=== PATIENT | male | born 1980 | race Caucasian/White ===

== ENCOUNTER 2017-06-04 23:52 | Emergency (ER) | payer MEDICAID ==
[~2017-06-04] VITALS: Ht 175.3 cm; Wt 97.8 kg
[2017-06-05 02:32] VITALS: BP 112/52
== END 2017-06-05 02:34 | disposition home or self-care (01) ==
LOC: ED 06-05 02:28
DX: R42 Dizziness and giddiness (principal)
CPT/HCPCS: 36415; 80047; 93005; 99285

== ENCOUNTER 2017-07-04 09:35 | Emergency (ER) | payer MEDICAID ==
[~2017-07-04] VITALS: Ht 177.8 cm; Wt 91.0 kg
[2017-07-04 12:14] VITALS: BP 113/58
== END 2017-07-04 12:18 | disposition home or self-care (01) ==
LOC: ED 11:51
DX: F32.1 Major depressive disorder, single episode, moderate (principal); F15.10 Other stimulant abuse, uncomplicated
CPT/HCPCS: 99284

== ENCOUNTER 2017-07-05 06:14 | Emergency (ER) | payer MEDICAID ==
[~2017-07-05] VITALS: Ht 177.8 cm; Wt 98.2 kg
[2017-07-05 06:19] VITALS: BP 122/80
== END 2017-07-05 07:02 | disposition home or self-care (01) ==
LOC: ED 06:55
DX: R06.00 Dyspnea, unspecified (principal)
CPT/HCPCS: 93005; 99283

== ENCOUNTER 2017-10-19 16:05 | Emergency (ER) | payer MEDICAID ==
[~2017-10-19] VITALS: Ht 175.3 cm; Wt 77.7 kg
[2017-10-19 16:42] VITALS: BP 129/78
[2017-10-19] MEDS ORDERED: LORazepam 0.5MG TABLET ONE (18:26)
[2017-10-19] MEDS ORDERED: LORazepam 0.5MG TABLET PO ONE (18:30)
[2017-10-19 19:11] LABS: ALANINE AMINOTRANSFERASE 32 U/L (12-78); ANION GAP 7 mmol/L (5-15); BASOPHILS % (AUTO) 0 % (0-1); CHLORIDE 104 mmol/L (98-107); EOSINOPHILS % (AUTO) 0 % (1-7); LYMPHOCYTES % (AUTO) 7 % (22-44); MD NO; MEAN CORPUSCULAR HEMOGLOBIN 31.1 pg (27.5-34.5); MEAN CORPUSCULAR HGB CONC 33.9 g/dL (33.2-36.2); MEAN CORPUSCULAR VOLUME 91.9 fL (81-97); MEAN PLATELET VOLUME 7.3 fL (7.4-10.4); MONOCYTES # (AUTO) 1.32 x10^3/uL (0.2-0.8); MONOCYTES % (AUTO) 8 % (2-9); NEUTROPHILS # (AUTO) 14.33 x10^3/uL (1.8-6.8); NEUTROPHILS % (AUTO) 86 % (42-75); PLATELET COUNT 309 x10^3/uL (130-400); RED BLOOD COUNT 4.91 x10^6/uL (4.38-5.82); RED CELL DISTRIBUTION WIDTH 12.2 % (9.4-14.8)
[2017-10-19 19:13] LABS: ALKALINE PHOSPHATASE 142 U/L (45-117); BILIRUBIN,TOTAL 2.9 mg/dL (0.2-1.0); CREATININE 1.14 mg/dL (0.7-1.3); TOTAL PROTEIN 8.3 g/dL (6.4-8.2)
[2017-10-19 19:20] LABS: ACETAMINOPHEN < 2 mcg/mL (10-30); SALICYLATE LEVEL < 1.7 mg/dL (2.8-20.0)
[2017-10-19 20:35] LABS: AMPHETAMINE SCREEN, URINE Negative (Negative); BARBITURATE SCREEN, URINE Negative (Negative); BENZODIAZEPINE SCREEN, URINE Negative (Negative); CANNABINOID SCREEN, URINE Negative (Negative); COCAINE SCREEN, URINE Negative (Negative); METHADONE SCREEN, URINE Negative (Negative); OPIATE SCREEN, URINE Negative (Negative)
== END 2017-10-19 20:39 | disposition home or self-care (01) ==
LOC: ED 20:08
DX: F33.2 Major depressive disorder, recurrent severe without psychotic features (principal)
CPT/HCPCS: 36415; 80053; 80307; 80329; 85025; 99284; G0479; G0480

== ENCOUNTER 2017-10-23 21:06 | Emergency (ER) | payer MEDICAID ==
[~2017-10-23] VITALS: Ht 177.8 cm; Wt 76.9 kg
[2017-10-23 21:24] VITALS: BP 111/77
[2017-10-23 22:21] LABS: BASOPHILS # (AUTO) 0.02 x10^3/uL (0-0.1); BASOPHILS % (AUTO) 0 % (0-1); EOSINOPHILS # (AUTO) 0.19 x10^3/uL (0-0.4); EOSINOPHILS % (AUTO) 2 % (1-7); LYMPHOCYTES # (AUTO) 1.92 x10^3/uL (1-3.4); LYMPHOCYTES % (AUTO) 21 % (22-44); MD NO; MEAN CORPUSCULAR HEMOGLOBIN 30.8 pg (27.5-34.5); MEAN CORPUSCULAR HGB CONC 32.9 g/dL (33.2-36.2); MEAN CORPUSCULAR VOLUME 93.6 fL (81-97); MEAN PLATELET VOLUME 7.1 fL (7.4-10.4); MONOCYTES # (AUTO) 0.89 x10^3/uL (0.2-0.8); MONOCYTES % (AUTO) 10 % (2-9); NEUTROPHILS # (AUTO) 6.31 x10^3/uL (1.8-6.8); NEUTROPHILS % (AUTO) 68 % (42-75); PLATELET COUNT 364 x10^3/uL (130-400); RED BLOOD COUNT 4.49 x10^6/uL (4.38-5.82); RED CELL DISTRIBUTION WIDTH 12.3 % (9.4-14.8)
[2017-10-23 22:30] LABS: ALBUMIN 3.3 g/dL (3.4-5.0); ANION GAP 5 mmol/L (5-15); CALCIUM 9.1 mg/dL (8.5-10.1); CHLORIDE 106 mmol/L (98-107); CREATININE 0.87 mg/dL (0.7-1.3)
== END 2017-10-23 23:35 | disposition home or self-care (01) ==
LOC: ED 22:09
DX: R53.1 Weakness (principal); F32.9 Major depressive disorder, single episode, unspecified; Z59.0 Homelessness
CPT/HCPCS: 36415; 80048; 80307; 82040; 85025; 93005; G0479

== ENCOUNTER 2017-10-29 06:09 | Emergency (ER) | payer MEDICAID ==
[~2017-10-29] VITALS: Ht 177.8 cm; Wt 74.0 kg
[2017-10-29 06:10] VITALS: BP 105/71
== END 2017-10-29 09:13 | disposition home or self-care (01) ==
LOC: ED 07:42
DX: J20.8 Acute bronchitis due to other specified organisms (principal); M25.512 Pain in left shoulder
CPT/HCPCS: 71046; 99284

== ENCOUNTER 2017-10-30 17:26 | Emergency (ER) | payer MEDICAID ==
[~2017-10-30] VITALS: Ht 172.7 cm; Wt 75.0 kg
[2017-10-30 17:31] VITALS: BP 128/70
== END 2017-10-30 19:23 | disposition home or self-care (01) ==
LOC: ED 17:43
DX: M79.605 Pain in left leg (principal); Z59.0 Homelessness; F17.200 Nicotine dependence, unspecified, uncomplicated
CPT/HCPCS: 99284

== ENCOUNTER 2018-07-13 08:29 | Emergency (ER) | payer MEDICAID ==
[~2018-07-13] VITALS: Ht 177.8 cm; Wt 74.5 kg
[2018-07-13 08:38] VITALS: BP 113/63
== END 2018-07-13 10:14 | disposition home or self-care (01) ==
LOC: ED 10:08
DX: L03.115 Cellulitis of right lower limb (principal); F32.9 Major depressive disorder, single episode, unspecified
CPT/HCPCS: 99284

== ENCOUNTER 2018-12-02 11:20 | Emergency (ER) | payer MEDICAID ==
[~2018-12-02] VITALS: Ht 177.8 cm; Wt 75.0 kg
[2018-12-02 11:45] VITALS: BP 108/46
[2018-12-02 11:50] LABS: BASOPHILS # (AUTO) 0.02 x10^3/uL (0-0.1); BASOPHILS % (AUTO) 0 % (0-1); EOSINOPHILS # (AUTO) 0.24 x10^3/uL (0-0.4); EOSINOPHILS % (AUTO) 4 % (1-7); LYMPHOCYTES # (AUTO) 1.27 x10^3/uL (1-3.4); LYMPHOCYTES % (AUTO) 21 % (22-44); MD NO; MEAN CORPUSCULAR HEMOGLOBIN 31.2 pg (27.5-34.5); MEAN CORPUSCULAR HGB CONC 33.9 g/dL (33.2-36.2); MEAN PLATELET VOLUME 6.4 fL (7.4-10.4); MONOCYTES # (AUTO) 0.64 x10^3/uL (0.2-0.8); MONOCYTES % (AUTO) 11 % (2-9); NEUTROPHILS # (AUTO) 3.95 x10^3/uL (1.8-6.8); NEUTROPHILS % (AUTO) 65 % (42-75); PLATELET COUNT 312 x10^3/uL (130-400); RED BLOOD COUNT 4.18 x10^6/uL (4.38-5.82); RED CELL DISTRIBUTION WIDTH 13.2 % (9.4-14.8)
--- NOTE | 2018-12-02 11:53 | NUR ---
PT BIB [facility] WITH [employer]. [employer] PUT PT ON LEGAL HOLD FOR SI. PT WAS AT [facility] AND SEVERAL PEOPLE HEARD THE PT SAY THAT HE WANTED TO KILL HIMSELF BY USING A KNIFE OR BY OD. PT DENIES SI. PT IS DRESSED IN A GOWN. BELONGINGS PUT INTO TWO BAGS AND PUT INTO THE LOCKER. SITTER OUTSIDE THE ROOM.
[2018-12-02 12:02] LABS: ALBUMIN 3.5 g/dL (3.4-5.0); ANION GAP 3 mmol/L (5-15); CHLORIDE 107 mmol/L (98-107)
[2018-12-02 12:13] LABS: MICROSCOPIC NOT IND
--- NOTE | 2018-12-02 12:13 | NUR ---
PT GIVEN LUNCH TRAY.
[2018-12-02 12:14] LABS: CULTURE INDICATED? NO
[2018-12-02 12:28] LABS: ALANINE AMINOTRANSFERASE 45 U/L (12-78); ALKALINE PHOSPHATASE 129 U/L (45-117); BILIRUBIN,TOTAL 0.8 mg/dL (0.2-1.0); CALCIUM 8.2 mg/dL (8.5-10.1); CREATININE 0.85 mg/dL (0.7-1.3); TOTAL PROTEIN 7.8 g/dL (6.4-8.2)
[2018-12-02 12:30] LABS: ACETAMINOPHEN < 2 mcg/mL (10-30); SALICYLATE LEVEL < 1.7 mg/dL (2.8-20.0)
--- NOTE | 2018-12-02 12:52 | NUR ---
PT GIVEN A 7UP TO DRINK. PT IS APPRECIATIVE. SITTER OUTSIDE THE ROOM.
--- NOTE | 2018-12-02 13:07 | NUR ---
PT GIVEN 2ND LUNCH TRAY. PT IS APPRECIATIVE.
[2018-12-02 14:05] LABS: AMPHETAMINE SCREEN, URINE Positive (Negative); BARBITURATE SCREEN, URINE Negative (Negative); BENZODIAZEPINE SCREEN, URINE Negative (Negative); CANNABINOID SCREEN, URINE Negative (Negative); COCAINE SCREEN, URINE Negative (Negative); OPIATE SCREEN, URINE Negative (Negative)
--- NOTE | 2018-12-02 14:05 | NUR ---
PT IS RESTING IN BED, RESPIRATIONS EQUAL AND NON LABORED. NAD. SITTER OUTSIDE THE ROOM.
[2018-12-02 14:08] LABS: METHADONE SCREEN, URINE Negative (Negative)
--- NOTE | 2018-12-02 14:57 | NUR ---
PT IS RESTING IN BED WITH EYES CLOSED, RESPIRATIONS EQUAL AND NON LABORED. NAD. SITTER OUTSIDE THE ROOM.
--- NOTE | 2018-12-02 15:08 | NUR ---
TP RN: SOC CONSULT REQUESTED.
--- NOTE | 2018-12-02 15:30 | NUR ---
PT AMBULATED TO THE BATHROOM WITH STEADY GAIT. SITTER OUTSIDE THE DOOR.
--- NOTE | 2018-12-02 15:53 | NUR ---
PT IS WALKING AROUND ROOM. NAD. SITTER OUTSIDE ROOM.
--- NOTE | 2018-12-02 16:30 | NUR ---
PT GIVEN DINNER TRAY.
--- NOTE | 2018-12-02 16:32 | NUR ---
SPOKE WITH SOC DR. FIGUEROA. GAVE HER REPORT ON THE PT.
--- NOTE | 2018-12-02 16:37 | NUR ---
PT IS TALKING TO TELEPSYCH DOCTOR.
[2018-12-02] MEDS ORDERED: LORazepam 1MG TABLET PO ONE (17:00)
[2018-12-02] MEDS ORDERED: LORazepam 1MG TABLET ONE (17:02)
--- NOTE | 2018-12-02 17:37 | NUR ---
PT MEDICATED PER ORDER.
--- NOTE | 2018-12-02 18:20 | NUR ---
DPatient given discharge instructions and they have confirmed that they understand the instructions. Patient ambulatory with steady gait.
== END 2018-12-02 18:22 | disposition home or self-care (01) ==
LOC: ED 13:09
DX: F15.129 Other stimulant abuse with intoxication, unspecified (principal); F17.210 Nicotine dependence, cigarettes, uncomplicated
CPT/HCPCS: 36415; 80053; 80307; 80329; 81003; 85025; 99283; G0480

== ENCOUNTER 2019-02-25 22:00 | Emergency (ER) | payer MEDICAID ==
[~2019-02-25] VITALS: Ht 177.8 cm; Wt 92.6 kg
[2019-02-25 22:05] VITALS: BP 119/74
== END 2019-02-25 22:53 | disposition home or self-care (01) ==
LOC: ED 22:49
DX: S60.221A Contusion of right hand, initial encounter (principal); X58.XXXA Exposure to other specified factors, initial encounter; Y93.89 Activity, other specified; Y92.009 Unspecified place in unspecified non-institutional (private) residence as the place of occurrence of the external cause; Y99.8 Other external cause status
CPT/HCPCS: 99283

== ENCOUNTER 2019-04-21 07:11 | Emergency (ER) | payer MEDICAID ==
[~2019-04-21] VITALS: Ht 177.8 cm; Wt 94.8 kg
[2019-04-21 07:18] VITALS: BP 117/77
== END 2019-04-21 08:28 | disposition home or self-care (01) ==
LOC: ED 08:00
DX: S39.012A Strain of muscle, fascia and tendon of lower back, initial encounter (principal); G89.29 Other chronic pain; X58.XXXA Exposure to other specified factors, initial encounter; Y93.89 Activity, other specified; Y92.89 Other specified places as the place of occurrence of the external cause; Y99.8 Other external cause status
CPT/HCPCS: 99283

== ENCOUNTER 2019-10-16 07:40 | Emergency (ER) | payer MEDICAID ==
[~2019-10-16] VITALS: Ht 177.8 cm; Wt 100.0 kg
[~2019-10-16 07:40] MED LIST: OLAN10TA9 PO
[2019-10-16 07:53] VITALS: BP 118/70
--- NOTE | 2019-10-16 07:57 | NUR ---
piter. report received from ems. pt woke up with panic atack and anxiety at 5am. denies si/hi. pt's aox4. resps even and unlabored.
[2019-10-16] MEDS ORDERED: ASPIRIN 81 MG TABLET CHEW ONE (08:40)
--- NOTE | 2019-10-16 08:50 | NUR ---
xray in the room at this time.
--- NOTE | 2019-10-16 08:56 | NUR ---
pt medicated per emar. pt tolerated well. pt's aox4. resps even and unlabored.
[2019-10-16] MEDS ORDERED: ASPIRIN 81 MG TABLET CHEW PO ONE (09:00)
[2019-10-16 09:05] LABS: BASOPHILS # (AUTO) 0.07 x10^3/uL (0-0.1); BASOPHILS % (AUTO) 1 % (0-1); EOSINOPHILS # (AUTO) 0.19 x10^3/uL (0-0.4); EOSINOPHILS % (AUTO) 2 % (1-7); LYMPHOCYTES # (AUTO) 1.52 x10^3/uL (1-3.4); LYMPHOCYTES % (AUTO) 19 % (22-44); MD NO; MEAN CORPUSCULAR HEMOGLOBIN 31.7 pg (27.5-34.5); MEAN CORPUSCULAR HGB CONC 33.8 g/dL (33.2-36.2); MEAN CORPUSCULAR VOLUME 93.7 fL (81-97); MEAN PLATELET VOLUME 6.8 fL (7.4-10.4); MONOCYTES # (AUTO) 0.78 x10^3/uL (0.2-0.8); MONOCYTES % (AUTO) 10 % (2-9); NEUTROPHILS % (AUTO) 69 % (42-75); PLATELET COUNT 317 x10^3/uL (130-400); RED BLOOD COUNT 4.64 x10^6/uL (4.38-5.82); RED CELL DISTRIBUTION WIDTH 11.7 % (9.4-14.8)
[2019-10-16 09:15] LABS: ALBUMIN 3.7 g/dL (3.4-5.0); ANION GAP 6 mmol/L (5-15); CALCIUM 8.7 mg/dL (8.5-10.1); CHLORIDE 109 mmol/L (98-107); CREATININE 1.11 mg/dL (0.7-1.3)
[2019-10-16 09:19] LABS: TROPONIN I < 0.015 ng/mL (0.000-0.045)
--- NOTE | 2019-10-16 09:19 | NUR ---
pt is standing in the room. pt talking and laughing by himself.
--- NOTE | 2019-10-16 10:09 | NUR ---
Patient given discharge instructions and they have confirmed that they understand the instructions. Patient ambulatory with steady gait.
== END 2019-10-16 10:10 | disposition home or self-care (01) ==
LOC: ED 10:00
DX: F41.1 Generalized anxiety disorder (principal); R07.89 Other chest pain; F20.9 Schizophrenia, unspecified; F32.9 Major depressive disorder, single episode, unspecified
CPT/HCPCS: 36415; 71045; 80048; 82040; 84484; 85025; 93005; 99284

== ENCOUNTER 2019-12-06 15:45 | Emergency (ER) | payer MEDICAID ==
[~2019-12-06] VITALS: Ht 177.8 cm; Wt 80.0 kg
[2019-12-06 16:03] VITALS: BP 125/62
[2019-12-06 16:48] LABS: BASOPHILS # (AUTO) 0.04 x10^3/uL (0-0.1); BASOPHILS % (AUTO) 1 % (0-1); EOSINOPHILS # (AUTO) 0.16 x10^3/uL (0-0.4); EOSINOPHILS % (AUTO) 2 % (1-7); LYMPHOCYTES # (AUTO) 1.16 x10^3/uL (1-3.4); LYMPHOCYTES % (AUTO) 15 % (22-44); MD NO; MEAN CORPUSCULAR HEMOGLOBIN 31.3 pg (27.5-34.5); MEAN CORPUSCULAR HGB CONC 32.8 g/dL (33.2-36.2); MEAN CORPUSCULAR VOLUME 95.3 fL (81-97); MEAN PLATELET VOLUME 7.6 fL (7.4-10.4); MONOCYTES # (AUTO) 0.54 x10^3/uL (0.2-0.8); MONOCYTES % (AUTO) 7 % (2-9); NEUTROPHILS # (AUTO) 5.68 x10^3/uL (1.8-6.8); NEUTROPHILS % (AUTO) 75 % (42-75); PLATELET COUNT 242 x10^3/uL (130-400); RED BLOOD COUNT 4.41 x10^6/uL (4.38-5.82)
[2019-12-06 16:59] LABS: ALBUMIN 3.8 g/dL (3.4-5.0); ANION GAP 5 mmol/L (5-15); CALCIUM 8.9 mg/dL (8.5-10.1); CHLORIDE 107 mmol/L (98-107); CREATININE 1.14 mg/dL (0.7-1.3)
[2019-12-06 17:01] LABS: SALICYLATE LEVEL < 1.7 mg/dL (2.8-20.0)
[2019-12-06] MEDS ORDERED: NEOSPORIN OINT. PKT 1 PACKET ONE (17:01)
--- NOTE | 2019-12-06 17:15 | NUR ---
FEET CLEANED, MIGUEL CLEANED, UNDERARMS CLEANED. PT HAS A WOUND RIGHT GREAT TOE. HE STATES HE HIT IT. WOUND CLEANED AND NEOSPORIN AND BANDAID PLACED. PSYCH NURSE EXAMINING PT AND PT PROVIDED DINNER. PT LAUGHS TO HIMSELF BUT CONVERSING.
--- NOTE | 2019-12-06 17:18 | NUR ---
PT IN DIRECT VIEW OF [facility]
[2019-12-06] MEDS ORDERED: OLANZAPINE 5 MG TABLET PO ONE (18:00)
--- NOTE | 2019-12-06 18:04 | NUR ---
provided paient with 1 bag of clothes. rn case management here from [facility]. patient ambulatory on discharge. patient recevied his rx for zprexa.
== END 2019-12-06 18:26 | disposition home or self-care (01) ==
LOC: ED 18:04
DX: F29 Unspecified psychosis not due to a substance or known physiological condition (principal); Z87.891 Personal history of nicotine dependence
CPT/HCPCS: 36415; 80048; 80307; 82040; 85025; 99284

== ENCOUNTER 2020-01-12 16:54 | Emergency (ER) | payer MEDICAID ==
[~2020-01-12] VITALS: Ht 177.8 cm; Wt 100.3 kg
[2020-01-12 16:56] VITALS: BP 125/75
--- NOTE | 2020-01-12 18:52 | NUR ---
BEDSIDE REPORT TO ROSALEE LEY.
== END 2020-01-12 19:23 | disposition home or self-care (01) ==
LOC: ED 18:30
DX: S60.222A Contusion of left hand, initial encounter (principal); X58.XXXA Exposure to other specified factors, initial encounter; Y93.89 Activity, other specified; Y92.009 Unspecified place in unspecified non-institutional (private) residence as the place of occurrence of the external cause; Y99.8 Other external cause status
CPT/HCPCS: 99283

== ENCOUNTER 2020-09-12 12:23 | Emergency (ER) | payer MEDICAID ==
[~2020-09-12] VITALS: Ht 175.3 cm; Wt 112.0 kg
[2020-09-12 12:58] LABS: BASOPHILS % (AUTO) 1 % (0-1); EOSINOPHILS % (AUTO) 1 % (1-7); LYMPHOCYTES % (AUTO) 15 % (22-44); MEAN CORPUSCULAR HGB CONC 34.3 g/dL (33.2-36.2); MEAN PLATELET VOLUME 6.8 fL (7.4-10.4); MONOCYTES % (AUTO) 8 % (2-9); NEUTROPHILS % (AUTO) 75 % (42-75); PLATELET COUNT 384 x10^3/uL (130-400); RED BLOOD COUNT 5.12 x10^6/uL (4.38-5.82); RED CELL DISTRIBUTION WIDTH 12.4 % (9.4-14.8)
[2020-09-12 13:00] LABS: MD NO
[2020-09-12 13:24] LABS: ALANINE AMINOTRANSFERASE 51 U/L (12-78); ALBUMIN 4.2 g/dL (3.4-5.0); ALKALINE PHOSPHATASE 171 U/L (45-117); ANION GAP 7 mmol/L (5-15); BILIRUBIN,TOTAL 1.3 mg/dL (0.2-1.0); CALCIUM 9.1 mg/dL (8.5-10.1); CHLORIDE 107 mmol/L (98-107); TOTAL PROTEIN 8.6 g/dL (6.4-8.2)
--- NOTE | 2020-09-12 16:39 | NUR ---
COUNTY HISTORIAN: PT TO ROOM FROM LOBBY
--- NOTE | 2020-09-12 16:47 | NUR ---
CONTACT WITH PT, 40 YR OLD MALE HERE WITH C/O "I HAVENT BEEN FEELING GOOD. I HAVE BEEN SHAKING ALOT, I THOUGHT I WAS HAVING A HEART ATTACK, BUT I WASNT" HAS BEEN OFF AND ON FOR THE LAST 3 DAYS. PT SR PER MONITOR, AUTO BP AND PULSE OX IN PLACE. NO ACUTE DISTRESS NOTED.
--- NOTE | 2020-09-12 17:00 | NUR ---
PT PROVIDED WITH A URINAL FOR URINE SPECIMAN.
--- NOTE | 2020-09-12 17:24 | NUR ---
PT ABLE TO PROVIDE SMALL AMT OF URINE. ROSELINE WALKED TO LAB
--- NOTE | 2020-09-12 17:39 | NUR ---
U/S TECH AT BEDSIDE.
[2020-09-12 17:55] LABS: AMPHETAMINE SCREEN, URINE Negative (Negative); BARBITURATE SCREEN, URINE Negative (Negative); BENZODIAZEPINE SCREEN, URINE Negative (Negative); CANNABINOID SCREEN, URINE Negative (Negative); COCAINE SCREEN, URINE Negative (Negative); METHADONE SCREEN, URINE Negative (Negative); OPIATE SCREEN, URINE Negative (Negative)
[2020-09-12 17:58] LABS: MICROSCOPIC INDICATED
[2020-09-12 18:11] VITALS: BP 131/66
--- NOTE | 2020-09-12 18:11 | NUR ---
PT LAYING ON GURNEY, DOZING INTERMITTENTLY, AROUSES EASILY. NO ACUTE DISTRESS NOTED. PT AWARE OF WAITING FOR UA AND U/S RESULTS. NO NEEDS EXPRESSED AT THIS TIME.
--- NOTE | 2020-09-12 18:54 | NUR ---
PT LAYING ON GURNEY, NO ACUTE DISTRESS NOTED. NO IV TO DC. REVIEWED DC INSTRUCTIONS WITH PT. UNDERSTANDING VERBALZIED. PT REQUESTING TAXI VOUCHER. PROVIDED TO PT. DISCUSSED WITH PT, USE OF [employer] SERVICES. PT GETTING DRESSED.
--- NOTE | 2020-09-12 19:05 | NUR ---
report of pt from negrita kurtz and assuming care of pt at this time.
== END 2020-09-12 19:24 | disposition home or self-care (01) ==
LOC: ED 19:11
DX: K80.20 Calculus of gallbladder without cholecystitis without obstruction (principal); R11.2 Nausea with vomiting, unspecified
CPT/HCPCS: 36415; 76700; 80053; 80307; 81001; 83690; 85025; 99284

== ENCOUNTER 2020-12-31 11:27 | Emergency (ER) | payer MEDICAID ==
[~2020-12-31] VITALS: Ht 177.8 cm; Wt 129.6 kg
--- NOTE | 2020-12-31 11:47 | NUR ---
PT IS UP PACING ROOM. VERY ANXIOUS. PT REFUSES TO LAY ON GURNEY. MONITOR IN PLACE.
[2020-12-31 12:57] LABS: BASOPHILS % (AUTO) 1 % (0-1); EOSINOPHILS % (AUTO) 2 % (1-7); LYMPHOCYTES % (AUTO) 20 % (22-44); MEAN CORPUSCULAR HEMOGLOBIN 31.5 pg (27.5-34.5); MEAN CORPUSCULAR HGB CONC 34.5 g/dL (33.2-36.2); MEAN PLATELET VOLUME 6.9 fL (7.4-10.4); MONOCYTES % (AUTO) 13 % (2-9); NEUTROPHILS % (AUTO) 64 % (42-75); PLATELET COUNT 314 x10^3/uL (130-400); RED BLOOD COUNT 4.71 x10^6/uL (4.38-5.82); RED CELL DISTRIBUTION WIDTH 12.2 % (9.4-14.8)
[2020-12-31 12:58] LABS: MD NO
[2020-12-31 13:07] LABS: ALBUMIN 3.7 g/dL (3.4-5.0); ANION GAP 6 mmol/L (5-15); CALCIUM 8.5 mg/dL (8.5-10.1); CHLORIDE 107 mmol/L (98-107)
[2020-12-31 13:25] LABS: CREATININE 1.15 mg/dL (0.7-1.3); TROPONIN I < 0.015 ng/mL (0.000-0.045)
[2020-12-31 13:33] VITALS: BP 131/81
== END 2020-12-31 13:50 | disposition home or self-care (01) ==
LOC: ED 11:58
DX: I10 Essential (primary) hypertension (principal); R42 Dizziness and giddiness; R94.31 Abnormal electrocardiogram [ECG] [EKG]; Z79.899 Other long term (current) drug therapy
CPT/HCPCS: 36415; 80048; 82040; 82962; 84484; 85025; 93005; 99284